=== PATIENT | male | born 1995 | race African-American/Black ===

== ENCOUNTER 2023-09-09 14:03 | Emergency (ER) | payer OTHER ==
[~2023-09-09] VITALS: Ht 180.3 cm; Wt 77.3 kg
[2023-09-09 14:10] VITALS: BP 131/76; TEMP 98.2; O2SAT 99
[2023-09-10] MEDS ORDERED: NAPR500T6 PO (14:05)
== END 2023-09-09 16:06 | disposition left against medical advice (07) ==
LOC: M ED 14:03
DX: Z53.21 Procedure and treatment not carried out due to patient leaving prior to being seen by health care provider (principal)

== ENCOUNTER 2023-09-10 11:28 | Emergency (ER) | payer OTHER ==
[~2023-09-10] VITALS: Ht 180.3 cm; Wt 81.9 kg
[2023-09-10] MEDS ORDERED: NAPR500T6 PO (14:05)
[2023-09-10 14:14] VITALS: BP 114/70; TEMP 97.2; O2SAT 100
== END 2023-09-10 14:12 | disposition home or self-care (01) ==
LOC: M ED 11:28
DX: M75.32 Calcific tendinitis of left shoulder (principal); M67.833 Other specified disorders of tendon, right wrist; Y99.1 Military activity; Z79.1 Long term (current) use of non-steroidal anti-inflammatories (NSAID)

== ENCOUNTER → 2023-09-23 | Outpatient (CLI) | payer OTHER ==
[~2023-09-23] MED LIST: ISOVUE-300 61% 100ML VIAL As Ordered ONE; LIDOCAINE 1% MDV 20ML VIAL As Ordered ONE; NAPR500T6 PO; PROHANCE 279.3MG/ML 5ML VIAL As Ordered ONE
== END ==
LOC: M RAD 06:53 → EDUNIT# 07:00
PROVIDERS: ATTEND Physician Assistant
DX: M25.511 Pain in right shoulder (principal)
CPT/HCPCS: 23350; 73223; 77002; A9576; Q9967